=== PATIENT | male | born 2000 | race African-American/Black ===

== ENCOUNTER 2022-03-19 16:55 | Emergency (ER) | payer MEDICAID, OTHER ==
[2022-03-19 18:00] LABS: Bilirubin Neg (Negative); Blood, Urine Negative (Negative); Clarity Clear (Clear); Glucose, Urine (Dipstick) Normal (Negative); Ketone, Urine 5 mg/dL (Negative); Leukocyte 25 (Negative); Nitrite Negative (Negative); Protein, Urine (Dipstick) 15 mg/dl (Neg-Trace); Specific Gravity, Urine 1.015 (1.002-1.036); pH, Urine 6.5 (5.0-9.0)
[2022-03-19 18:08] LABS: Bacteria/HPF None Seen HPF (None Seen); Mucous/LPF Rare LPF (<2+); RBC/HPF None Seen HPF (0-3); Squamous Epithelial 0-3 HPF (0-3); WBC/HPF None Seen HPF (0-3)
== END 2022-03-19 19:08 | disposition left against medical advice (07) ==
LOC: CSHERS 16:55
DX: R10.31 Right lower quadrant pain (principal)
CPT/HCPCS: 81003; 81015; 99284